=== PATIENT | male | born 1945 | race Caucasian/White ===

== ENCOUNTER 2019-04-23 08:43 | Day surgery (SDC) ==
--- NOTE | 2019-04-11 17:23 | EKG Report ---
Test Performed on : 04/11/2019 5:20:15 PM Test Reason : PAT Blood Pressure : / mmHG Vent. Rate : 099 BPM Atrial Rate : 099 BPM P-R Int : 148 ms QRS Dur : 096 ms QT Int : 324 ms P-R-T Axes : 074 080 028 degrees QTc Int : 415 ms Normal sinus rhythm. Normal ECG No previous ECGs available Confirmed by Jesse Colin MD ([id number]) on 04/12/2019 8:10:40 AM
[2019-04-11 17:32] LABS: URINE SOURCE CLEAN CATCH
[2019-04-11 17:41] LABS: BASO# 0.03 X1000 (0.0-0.2); BASO% 0.5 % (0.0-0.8); EOS# 0.08 X1000 (0.0-0.7); EOS% 1.4 % (0.0-10.0); HEMATOCRIT 44.3 % (42.0-52.0); HEMOGLOBIN 15.1 g/dL (14.0-18.0); IMM GRAN# 0.02 X1000 (0.0-0.04); IMM GRAN% 0.3 % (0.0-0.5); LYMPH# 0.92 X1000 (1.2-3.4); MCH 31.4 PG (27-31); MCHC 34.1 g/dL (33-37); MCV 92.1 FL (81-99); MONO# 0.77 X1000 (0.11-0.59); MONO% 13.4 % (1.7-9.3); MPV 9.6 FL (7.4-10.4); NEUT# 3.94 X1000 (1.4-6.5); NEUT% 68.4 % (42.2-75.2); PLT 259 X1000 (130-400); RBC 4.81 XMIL (4.7-6.1); RDW 12.9 % (11.5-14.5); WBC 5.76 X1000 (4.8-10.8)
[2019-04-11 17:51] LABS: BILIRUBIN URINE NEGATIVE (NEGATIVE); BLOOD URINE TRACE (NEGATIVE); COLOR YELLOW; GLUCOSE URINE NEGATIVE (NEGATIVE); KETONE URINE NEGATIVE (NEGATIVE); LEUKOCYTES URINE NEGATIVE (NEGATIVE); NITRITE URINE NEGATIVE (NEGATIVE); PROTEIN URINE NEGATIVE (NEGATIVE); SP GRAVITY URINE 1.021; TURBIDITY URINE CLEAR (CLEAR); UROBILINOGEN URINE NORMAL (NORMAL)
[2019-04-11 17:52] LABS: UR EPITHELIAL CELLS <10 /HPF (<10); URINE BACTERIA NEGATIVE /HPF; URINE RBC <10 /HPF (<10); URINE WBC <10 /HPF (<10)
[2019-04-11 17:55] LABS: HEMOGLOBIN A1C 5.4 % (4.8-6.0); INR 0.99; PROTIME 13.2 Seconds (11.0-16.0)
[2019-04-11 17:56] LABS: PTT 27.4 Seconds (22.3-41.8)
[2019-04-11 18:12] LABS: ALBUMIN 4.4 g/dL (3.5-5.0); CALCIUM 9.7 mg/dL (8.8-10.2); CREATININE 1.2 mg/dL (0.7-1.2); POTASSIUM 4.2 mmol/L (3.5-5.1)
[2019-04-23] MEDS ORDERED: PEPCID ONE (09:11)
[2019-04-23] MEDS ORDERED: CELEBREX ONE (09:11)
[2019-04-23] MEDS ORDERED: LYRICA ONE (09:11)
[2019-04-23] MEDS ORDERED: COLACE ONE (09:11)
[2019-04-23] MEDS ORDERED: REGLAN ONE (09:11)
[2019-04-23] MEDS ORDERED: KEFZOL 1 GM/D5W 2 GM/100 ML IVPB ONE (09:12)
[2019-04-23] MEDS ORDERED: LR 1,000 ML ONE (09:12)
[2019-04-23] MEDS ORDERED: DIPRIVAN 1% ONE ×4 (09:40→13:42)
[2019-04-23] MEDS ORDERED: SODIUM CHLORIDE 0.9% ONE (11:17)
[2019-04-23] MEDS ORDERED: TORADOL ONE (11:18)
[2019-04-23] MEDS ORDERED: DURAMORPH ONE (11:18)
[2019-04-23] MEDS ORDERED: MARCAINE 0.25% PF ONE (11:18)
[2019-04-23] MEDS ORDERED: CYKLOKAPRON 1,000 MG/NS 1,000 MG/100 ML IVPB ONE ×2 (11:18→11:19)
[2019-04-23] MEDS ORDERED: NEOSPORIN G.U. IRRIGANT ONE (11:19)
[2019-04-23] MEDS ORDERED: EXPAREL 1.3% ONE (11:19)
[2019-04-23] MEDS ORDERED: FENTANYL ONE ×2 (12:05→14:18)
[2019-04-23 14:03] LABS: URINE SOURCE CATH
[2019-04-23 14:08] LABS: BILIRUBIN URINE NEGATIVE (NEGATIVE); BLOOD URINE NEGATIVE (NEGATIVE); COLOR YELLOW; GLUCOSE URINE NEGATIVE (NEGATIVE); KETONE URINE NEGATIVE (NEGATIVE); LEUKOCYTES URINE NEGATIVE (NEGATIVE); NITRITE URINE NEGATIVE (NEGATIVE); PH URINE 5.5; PROTEIN URINE NEGATIVE (NEGATIVE); SP GRAVITY URINE 1.017; TURBIDITY URINE CLEAR (CLEAR); UROBILINOGEN URINE NORMAL (NORMAL)
[2019-04-23 14:12] LABS: UR EPITHELIAL CELLS <10 /HPF (<10); URINE BACTERIA NEGATIVE /HPF; URINE RBC <10 /HPF (<10); URINE WBC <10 /HPF (<10)
[2019-04-23] MEDS ORDERED: VERSED ONE (14:25)
[2019-04-23] MEDS ORDERED: NS 1,000 ML ONE (14:26)
[2019-04-23] MEDS ORDERED: OFIRMEV 1000 MG/ISOTONIC SOLN 1,000 MG/100 ML BOTTLE ONE (14:36)
--- NOTE | 2019-04-23 14:47 | OPERATIVE NOTE ---
PROCEDURE DATE: 04/23/2019 PREOPERATIVE DIAGNOSIS: Right hip degenerative joint disease. POSTOPERATIVE DIAGNOSIS: Right hip degenerative joint disease. PROCEDURE PERFORMED: Right anterior total hip arthroplasty using a [facility] size 12 high-offset stem with a 56 mm hemispherical shell, two 6.5 cancellous screws of 30 mm, a 36 mm inside diameter liner, and a -4, 36 mm neck length head. ANESTHESIA: Spinal. SURGEON: Mehran Vásquez M.D. TIRE RETREADER: SAMY Avina, who was present throughout the case. Her assistance was necessary for successful completion of the case. BLOOD LOSS: Minimal. DESCRIPTION OF PROCEDURE: The patient was brought to the operative suite and placed in the supine position. After successful administration of spinal anesthesia, the patient was placed on the OSI table, used for position of the right hip. The right hip was then prepped and draped in the usual sterile fashion. A longitudinal incision was made, beginning 3 cm distal and 3 cm lateral to the anterior superior iliac spines, extending a distance slightly laterally 8 cm, dissected sharply through skin and subcutaneous tissue down to the tensor fascia. The tensor fascia was incised and dissected bluntly down to the deep tensor fascia. Deep tensor fascia was incised, and circumflex vessels were electrocauterized, exposing the anterior capsule. A T capsulotomy was performed, exposing the femoral neck. Femoral neck cut was made with oscillating saw. The femoral head was removed with a power corkscrew. The labrum was resected. The acetabulum was serially reamed to a 56 to accept a 56 cup. The 56 cup was then driven into place in the proper amount of inclination and anteversion, and two 6.5 cancellous screws were placed, one superiorly and one posterior superiorly, and then the 36 mm inside diameter liner was locked onto the shell. Attention was then directed to the femur. It was externally rotated, extended, adducted, and elevated out of the wound with the hook on the OSI bed. The lateral neck was rongeured. The canal was serially broached to a size 12. A size 12 high-offset -4 neck length was found to be excellent leg length, fit and fill of the stem, high offset and stability of the hip. The trial was then removed. Definitive stem was seated onto the femur, and then the ceramic head was seated onto the Hart taper. The hip was reduced. It was again found to be in excellent position. The hip was copiously infiltrated with Exparel, including the posterior capsule, anterior capsule, anterior musculature, and subcutaneous tissue. The hip was copiously irrigated with normal saline containing irrigant and Vashe irrigation. The anterior capsule was repaired with 0 V-Loc. The tensor fascia was repaired with 0 V-Loc. The skin edge was approximated with 2-0 Vicryl, and closed with 4-0 Monocryl and a Prineo dressing. The patient tolerated the procedure well without complication. At the end of the procedure, all counts were correct x2. The patient was transferred to the recovery room in stable condition. cc: Mehran Vásquez MD
[2019-04-23] MEDS ORDERED: ZOFRAN IV PRN (16:30)
[2019-04-23] MEDS ORDERED: OXY IR PO PRN (16:30)
[2019-04-23] MEDS ORDERED: MILK OF MAGNESIA PO PRN (16:30)
[2019-04-23] MEDS ORDERED: MORPHINE IV PRN ×3 (16:30)
[2019-04-23] MEDS ORDERED: FLU VACCINE IM ONE (18:30)
[2019-04-23] MEDS: PERIDEX MT SCH (20:08)
[2019-04-23] MEDS: CELEBREX PO SCH (20:10)
[2019-04-23] MEDS: ULTRAM PO SCH (20:11)
[2019-04-23] MEDS: LYRICA PO SCH (20:11)
[2019-04-23] MEDS: NS 1,000 ML IV SCH (20:12)
[2019-04-23] MEDS: BENTYL PO SCH (20:12)
[2019-04-23] MEDS: KEFZOL 2 GM/D5W 2 GM/50 ML IVPB IV SCH (20:12)
[2019-04-23] MEDS: TYLENOL PO SCH (20:13)
[2019-04-23] MEDS: GLUCOSAMINE 500 MG/CHONDROITIN 400 MG PO SCH (20:13)
[2019-04-23] MEDS ORDERED: FLOMAX PO SCH (21:00)
[2019-04-23] MEDS ORDERED: COLACE PO SCH (21:00)
[2019-04-23] MEDS ORDERED: VITAMIN D PO SCH (21:00)
[2019-04-23] MEDS ORDERED: FERROUS SULFATE PO SCH (21:00)
[2019-04-23] MEDS ORDERED: MELATONIN PO SCH (21:00)
[2019-04-23] MEDS ORDERED: FISH OIL CONCENTRATE PO SCH (21:00)
[2019-04-23] MEDS ORDERED: THERA M PLUS PO SCH (21:00)
[2019-04-23] MEDS ORDERED: ELAVIL PO SCH (21:00)
[2019-04-23] MEDS: OXY IR PO PRN (23:05)
[2019-04-24] MEDS: PRINIVIL PO SCH ×3 (00:14→09:41)
[2019-04-24] MEDS: TYLENOL PO SCH ×2 (02:19→09:37)
[2019-04-24] MEDS: ULTRAM PO SCH ×2 (02:19→09:35)
[2019-04-24] MEDS: KEFZOL 2 GM/D5W 2 GM/50 ML IVPB IV SCH (04:25)
[2019-04-24] MEDS ORDERED: XARELTO PO SCH (06:00)
[2019-04-24] MEDS: NS 1,000 ML IV SCH (06:12)
[2019-04-24] MEDS: OXY IR PO PRN ×2 (06:19→14:38)
[2019-04-24] MEDS ORDERED: PRILOSEC PO SCH (07:00)
[2019-04-24 08:00] LABS: HEMATOCRIT 31.8 % (42.0-52.0); HEMOGLOBIN 10.7 g/dL (14.0-18.0)
[2019-04-24 08:43] LABS: AGAP 11; BUN 18 mg/dL (8-22); CALCIUM 8.1 mg/dL (8.8-10.2); CHLORIDE 102 mmol/L (98-107); COSMO 278; ESTIMATED GFR > 60; GLUCOSE 109 mg/dL (70-104); POTASSIUM 3.4 mmol/L (3.5-5.1); SODIUM 138 mmol/L (136-145); TCO2 25 mmol/L (25-35)
[2019-04-24] MEDS ORDERED: DECADRON IV ONE (09:00)
[2019-04-24] MEDS ORDERED: EFFEXOR XR PO SCH (09:00)
[2019-04-24] MEDS: LYRICA PO SCH (09:35)
[2019-04-24] MEDS: PERIDEX MT SCH (09:35)
[2019-04-24] MEDS: HYGROTON PO SCH ×2 (09:36→09:41)
[2019-04-24] MEDS: CELEBREX PO SCH (09:36)
[2019-04-24] MEDS: GLUCOSAMINE 500 MG/CHONDROITIN 400 MG PO SCH (09:37)
[2019-04-24] MEDS: BENTYL PO SCH ×2 (09:37→14:39)
[2019-04-24] MEDS ORDERED: PNEUMOVAX 23 IM ONE (11:25)
[2019-04-24 12:34] VITALS: BP 120/63
--- NOTE | 2019-04-24 13:25 | DISCHARGE SUMMARY ---
ADMISSION DATE: 04/23/2019 DISCHARGE DATE: 04/24/2019 DISCHARGE DIAGNOSIS: Right hip degenerative joint disease status post right total hip arthroplasty. DISCHARGE MEDICATION: See discharge medication list. DISPOSITION: The patient discharged to home with home health physical therapy. DISCHARGE INSTRUCTIONS: Instructed to return for any signs or symptoms of infection or deep venous thrombosis. Instructed return to see Dr. Vásquez next . HOSPITAL COURSE: On the day of admission patient underwent a right anterior total hip arthroplasty. At discharge, he is afebrile, tolerating a regular diet, ambulating well with physical therapy. His wound is clean, dry, intact without sign of infection. cc: Mehran Vásquez MD
== END 2019-04-24 15:20 | disposition home or self-care (01) ==
LOC: OPS 08:43 → 4N 08:43 → OPS 04-24 15:20
PROVIDERS: ATTEND Orthopaedic Surgery